=== PATIENT | female | born 2000 | race Caucasian/White ===

== ENCOUNTER 2022-10-13 14:23 | Outpatient (CLI) | payer OTHER, SELFPAY ==
--- NOTE | 2022-10-13 14:30 | CRLHL7_ITS ---
For Patients: As a result of the Century Cures Act, medical imaging exams and procedure reports are released immediately into your electronic medical record. You may view this report before your referring provider. If you have questions, please contact your health care provider. INDICATION: Chronic low back pain. TECHNIQUE: Multiplanar multisequence noncontrast MR images acquired through the lumbar spine. COMPARISON: None. FINDINGS: Transitional lumbosacral anatomy. For purposes of this exam, the transitional segment is designated L5 and demonstrates attempted sacralization bilaterally. Mild leftward lumbar curvature. Mildly exaggerated lumbar lordosis. Vertebral heights preserved. No acute fracture. No concerning T1 hypointense marrow replacing lesions or marrow edema. Normal conus terminates at T12-L1. T12-L1 through L3-4: No spinal canal or neural foraminal narrowing. L4-5: Grade 1 anterolisthesis measuring 5 mm associated with chronic bilateral L4 pars defects. Shallow posterior disc bulge. No spinal canal narrowing. Moderate right and mild left neural foraminal narrowing. L5-S1: No spinal canal or neural foraminal narrowing. IMPRESSION: 1. Transitional lumbosacral anatomy. For purposes of this exam, the transitional segment is designated L5 and demonstrates attempted sacralization bilaterally. 2. At L4-5, grade 1 anterolisthesis associated with chronic bilateral L4 pars defects. Moderate right and mild left neural foraminal narrowing. 3. Mild leftward lumbar curvature. Dictated by Franki Sebastian MD @ 10/13/2022 6:25:34 PM (Electronically Signed)
== END 2022-10-13 14:24 | disposition home or self-care (01) ==
LOC: MRI 14:26
PROVIDERS: PCP Family Medicine; Visit Provider Family Medicine
DX: M54.50 Low back pain, unspecified (principal); M51.26 Other intervertebral disc displacement, lumbar region
CPT/HCPCS: 72148

== ENCOUNTER 2023-05-14 13:03 | Outpatient (CLI) | payer BC, SELFPAY | END 2023-05-14 13:04 | disposition home or self-care (01) | LOC: INJ CL 13:04 | PROVIDERS: Visit Provider Family Medicine | DX: M54.50 Low back pain, unspecified (principal); G89.29 Other chronic pain | CPT/HCPCS: 64483; 64493; J0702; Q9966 ==

== ENCOUNTER 2023-12-10 10:22 | Day surgery (SDC) | payer BC, SELFPAY ==
[2023-12-10] VITALS (12 sets, daily range): BP systolic 113–144; BP diastolic 73–91; PULSE 84–112; RESP 16–20; TEMP 36.6–36.9; O2SAT 97–100; BMI 22.8
[2023-12-10 10:44] LABS: Ur HCG Qualitative* Negative (Negative)
[2023-12-10] MEDS: LACTATED RINGERS 1000 ML 1,000 ML 100 ML IV (10:45)
[2023-12-10] MEDS: SODIUM CHLORIDE 0.9 % (FLUSH) 10 ML SYRINGE IVF (10:45)
[2023-12-10] MEDS: SCOPOLAMINE 1 MG/3 DAY PATCH 1 PATCH TRANSDERMA (11:06)
--- NOTE | 2023-12-10 13:16 | SUR.OPER ---
PATIENT QUESTIONS ANSWERED SATISFACTORILY PREOPERATIVELY. PATIENT BROUGHT TO OR #1 PER CART. Patient positioned supine on OR #1 bed. Perioperative team wrapped arms bilaterally at patient side with drawsheet. ? Final approval of positioning by surgeon.
--- NOTE | 2023-12-10 13:32 | W.ANESCHARGE ---
Anesthesia Charges Start Date/Time Anesthesia Start Date: 12/10/23 Anesthesia Start Time: 13:01 Stop Date/Time Anesthesia Stop Date: 12/10/23 Anesthesia Stop Time: 13:47
--- NOTE | 2023-12-10 13:44 | W.ANESCHARGE ---
Anesthesia Charges Start Date/Time Anesthesia Start Date: 12/10/23 Anesthesia Start Time: 13:01 Stop Date/Time Anesthesia Stop Date: 12/10/23 Anesthesia Stop Time: 13:47
[2023-12-10] MEDS: fentaNYL 100 MCG/2 ML inj 50 MCG IVP ×2 (13:49→13:55)
--- NOTE | 2023-12-10 13:58 | W.PM.ENTPROC ---
Procedure Note Date of procedure: 12/10/23 Procedure: Preop diagnosis cryptic tonsillitis, chronic tonsillitis Postoperative diagnosis same Procedure tonsillectomy Under general tracheal anesthesia patient was prepped and draped usual fashion. A McIvor mouth gag was inserted the tongue retracted forward. The right and left tonsil removed with a combination of needlepoint and bipolar cautery. Meticulous hemostasis was achieved with suction cautery. There was a small amount of nasopharyngeal tonsil which was removed with suction cautery. The patient procedure well was taken recovery in satisfactory condition. Blood loss was less than 10 mL. Surgeon: Norris Coker MD
[2023-12-10] MEDS: OXYCODONE 1 MG/ML ORAL SOLN 5 MG PO (14:25)
[2023-12-10] MEDS: IBUPROFEN 100 MG/5 ML SUSP 200 MG PO (14:25)
[2023-12-10] MEDS: METOCLOPRAMIDE HCL 5 MG/ML INJ 10 MG IVP (15:14)
--- NOTE | 2023-12-10 15:53 | SUR.PHASEII ---
Pt to phase II alert and oriented. Patient tolerated puddings, popsicle, apple juice, water. Patient experienced one episode of nausea which resolved after reglan given. Patient verbalized readiness to be discharged and understanding of instructions. Patient home with mother. All questions answered.
== END 2023-12-10 15:45 | disposition home or self-care (01) ==
LOC: OR 10:23
PROVIDERS: Anesthesiology; PCP Family Medicine; Visit Provider Otolaryngology
PROC: (CPT 42826; principal; 2023-12-10 11:30)
DX: J35.01 Chronic tonsillitis (principal)
CPT/HCPCS: 42826; 00170; 81025; 88304; A9270; J0330; J2250; J2704; J2765; J3010; J7120